=== PATIENT | female | born 1995 | race Caucasian/White ===

== ENCOUNTER 2024-12-28 11:36 | Emergency (ER) | payer BC, SELFPAY ==
[2024-12-28 11:47] VITALS: BP 108/61; PULSE 67; RESP 16; TEMP 36.4; O2SAT 100
--- OUTSIDE RECORDS SUMMARY | 2024-12-28 11:53 | XMS_ITS | Clinical Summary ---
Author Organization [facility] Address [address] [place] [address] Phone Care Team Providers Care Corporate Tax Manager Name Role Phone Jr Trinh MD Primary Care Provider [phone] Allergies Active Allergy Reactions Criticality Noted Date Comments Bee Pollen Unknown 11/27/2018 Bee stings Medications EPINEPHrine (EPIPEN) 0.3 mg/0.3 mL Auto-Injector INJECT 1 DOSE INTRAMUSCULARLY ONCE WHEN NEEDED FOR ANAPHYLAXIS 02/14/20 21 Active levothyroxine 25 mcg tablet TAKE ONE AND ONE-HALF TABLETS (37.5 MCG) DAILY IN THE MORNING 135 Tablet 1 01/02/20 24 Active norethindrn a-e estradiol-iron (Blisovi Fe 09/24, ,) 1 mg-20 mcg (21)/75 mg (7) tablet Take 1 Tablet by mouth daily. 84 Tablet 3 06/14/20 24 Active Active Problems No known active problems Resolved Problems Problem Noted Date Diagnosed Date Resolved Date Encounter for elective induction of labor 10/28/2020 05/17/2022 Encounters Date Type Department Care Team Description 12/18/2024 External Device Data STL ABSTRACTION Provider, Abstract 12/11/2024 External Device Data STL ABSTRACTION Provider, Abstract 11/10/2024 External Device Data STL ABSTRACTION Provider, Abstract 11/09/2024 External Device Data STL ABSTRACTION Provider, Abstract 11/06/2024 External Device Data STL ABSTRACTION Provider, Abstract 10/24/2024 External Device Data STL ABSTRACTION Provider, Abstract 10/23/2024 External Device Data STL ABSTRACTION Provider, Abstract from Last 3 Months Immunizations Immunization Administration Dates Next Due (ADACEL/BOOSTRIX)(10 YR UP) TDAP VACCINE, 0.5ML, IM 10/11/2023,08/13/2020 INFLUENZA VACCINE QUADRIVALENT 6 MOS UP PF IM Family History Medical History Relation Name Comments Stroke Maternal Grandmother Relation Name Status Comments Maternal Grandmother Social History Tobacco Use Types Packs/Day Years Used Date Smoking Tobacco: Never Smokeless Tobacco: Never Tobacco Cessation:Counseling Given: Not Answered Alcohol Use Standard Drinks/Week Comments Not Currently 0 (1 standard drink = 0.6 oz pur e alcohol) Feeling Safe Answer Date Recorded Are you in a relationship wi th someone who hurts you emotionally and/or physically? Patient unable to answer 12/26/2023 Comments No Sex and Gender Information Value Date Recorded Sex Assigned at Not on file Legal Sex Female 3:42 PM CDT Gender Identity Not on file Sexual Orientation Not on file Last Filed Vital Signs Vital Sign Reading Time Taken Comments Blood Pressure 118/62 06/14/2024 10:02 AM CDT Pulse 69 12/28/2023 7:05 AM CDT Temperature 36.7 C (98.1 F) 12/28/2023 7:05 AM CDT Respiratory Rate 16 12/28/2023 7:05 AM CDT Oxygen Saturation 100% 12/27/2023 1:00 PM CDT Inhaled Oxygen Concentration - - Weight 75.2 kg (165 lb 12.8 oz) 024 10:02 AM CDT Height 162.6 cm (5' 4 ) 06/14/2024 10:0 2 AM CDT Body Mass Index 28.46 06/14/2024 10:02 AM CDT Plan of Treatment Upcoming Encounters Date Type Department Care Team (Late st Contact Info) Description 06/24/2025 2:00 PM CDT Office Visit [facility] - [id number] [facility] [address] [address] [place] [address] [facility] [address] [place] [address] Health Maintenance Due Date Last Done Comments HPV/Cotest (21-29) 2015 HPV/Cotest (30-65) 02/03/2024 INFLUENZA VACCINE (#1) 2024 2, 06/09/2020, 06/08/2011, Additional history exists CERVICAL CANCER SCREENING 06/07/2026 PAP SMEAR 06/07/2026 06/07/2023, 03/31/2020 DTAP/TDAP/TD VACCINES (9 - T d or Tdap) 10/11/2033 10/11/2023, 08/13/2020, 04/12/2005, Additional history exists HEPATITIS B VACCINES Completed 1994, 1994, 1994 HPV VACCINES Completed 03/20/2008, 10/2007, 09/13/2007 Procedures Procedure Name Priority Date/Time Associated Diagnosis Comments CERV/VAG CYTO AGE BASED SCREEN PAP Routine 06/07/2023 9:43 AM CDT from Last 3 Months or Most Recently Relevant to Health Maintenance Results * CERV/VAG CYTO AGE BASED SCREEN PAP (06/07/2023 9:43 AM CDT) COMMENT (PAP): Kiersten Coffey Comment: This order for age-based cervical cancer and STI screening follows ACOG guidelines(PB 168, 140, [id number]). See individual assays for performing site location. CLINICAL INFORMATION Kiersten Coffey Comment:None given LAST MENSTRUAL PERIOD Kiersten Coffey Comment:[id number] PREV PAP: Kiersten Coffey Comment:NONE GIVEN PREV BX: Kiersten Coffey Comment:NONE GIVEN SOURCE Kiersten Coffey Comment:Endocervix ADEQUACY: Kiersten Coffey Comment: Satisfactory for evaluation. Endocervical/transformation zone component present. PAP INTERP Kiersten Coffey Comment: Cytology Results: Negative for intraepithelial lesion or malignancy. COMMENT (PAP TEST) Q uluke Coffey Comment: This Pap test has been evaluated with computer assisted technology. MARKETING SYSTEMS MANAGER: Iveth Coffey Comment: MVB, CT(ASCP) CT Screening Location: [place] [address] [place] [address] Que [address] Randell Coffey Comment: EXPLANATORY NOTE: The Pap is a screening test for cervical cancer. It is not a diagnostic test and is subject to false negative and false positive results. It is most reliable when a satisfactory sample, regularly obtained, is submitted with relevant clinical findings and history, and when the Pap result is evaluated along with historic and current clinical information. Test Performed at: [place] [address] [address] [phone] José Louise Vo Genital SWAB OF ENDOCERVIX / Unknown 06/07/2023 9:43 AM CDT 06/08/2023 1:10 AM CDT us Faith Enriquez DO PATHOLOGY/CYTOLOGY ORDERABL ES Final Result [facility] [phone] [place] [address] [address] [address] from Last 3 Months or Most Recently Relevant to Health Maintenance Insurance [facility] BLUE ACCESS CHOICE RX [facility] Advance Directives For more information, please contact: [phone] * Full Code (Latest Code Status on File) Date Activated Date Inactivated Comments 12/26/2023 8:51 PM 12/28/2023 1:14 PM * Full Code Date Activated Date Inactivated Comments 12/26/2023 8:13 AM 12/26/2023 8:51 PM * Full Code Date Activated Date Inactivated Comments 10/29/2020 5:06 PM 10/31/2020 2:22 PM Care Teams Corporate Tax Manager Relationship Specialty Start Date End Date Jr Trinh MD [address] [facility] [address] [place] [address] PCP - General Internal Medicine 10/07/20
--- NOTE | 2024-12-28 12:07 | ED_ITS ---
HPI - URI/Sore Throat General Chief Complaint: Upper Respiratory Infection Stated Complaint: sinus infection Time Seen by Provider: 12/28/24 11:50 Source: patient and RN notes reviewed Mode of arrival: ambulatory Limitations: no limitations History of Present Illness HPI Narrative: 29-year-old female presents Express Care complaining with upper respiratory symptoms for 10 days. Patient reported having congestion, sinus pressure, cough, postnasal drip. Patient has been taking Sudafed and Mucinex as needed for her symptoms with some relief. She denies any sore throat, fevers, chills, body aches, chest pain or shortness of breath. Patient says she is not feeling much better. Patient reports her cough is dry nonproductive. Patient says she has purulent nasal discharge as well Related Data Allergies Allergy/AdvReac Type Severity Reaction Status Date / Time No Known Allergies Allergy Verified 12/28/24 11:46 Review of Systems Review of Systems: CONSTITUTIONAL: Denies fever, chills, body aches, or sweats. EYES: Denies visual changes, redness, or discharge. ENT: Denies rhinorrhea, sore throat, or otalgia. Positive for congestion and nasal discharge. CARDIOVASCULAR: Denies chest pain, palpitations, or edema. RESPIRATORY: Positive for cough. Negative for dyspnea. GASTROINTESTINAL: Denies abdominal pain, nausea, vomiting, or diarrhea. GENITOURINARY: Denies dysuria or hematuria. SKIN: Denies rash or itching. MUSCULOSKELETAL: Denies back pain, joint pain, or myalgia. NEUROLOGIC: Denies headache, numbness, or weakness. PSYCHIATRIC: Denies anxiety or depression. All other systems reviewed are negative, except as documented in HPI. PMFSH Social History Social History Smoking status: Never smoker Alcohol intake: never Substance use: never Living arrangements: with family Occupation/Education: occupation Gender identity (if verbalized by the patient): Female Comments At the time of my signature, I reviewed and agree with the nursing past medical, surgical, social, and family history. There is no relevant family history per tinent to the patient complaint. Exam Narrative: GENERAL: This is a well-nourished, well-developed adult, in no apparent distress. They are non ill-appearing, nontoxic appearing. HEAD: normocephalic, atraumatic. EYES: Sclera clear/white. Conjunctivae are normal Vision is grossly intact. Extraocular movements intact. EARS: External ears normal, auditory canals clear and without drainage, TMs normal without perforation. Hearing grossly intact. NOSE: External nose normal with no obvious nasal discharge, nasal turbinates are erythematous bilaterally, no rhinorrhea. THROAT: Mucous membranes moist, posterior pharynx without swelling or erythema. Postnasal drip present. Uvula midline. NECK: Neck supple, non-tender without lymphadenopathy, masses or thyromegaly. CARDIOVASCULAR: Regular rate and rhythm without murmurs, gallops, or rubs. RESPIRATORY: Clear to auscultation. Breath sounds equal bilaterally. No wheezes, rales, or rhonchi. SKIN: warm, Dry, intact with no suspicious lesions or rash, good texture and turgor. NEURO: awake, alert, and oriented to person, place and time. There were no obvious focal neurologic abnormalities. EXTREMITIES: No joint tenderness, effusion, or edema noted. Course Course Level of Care: Express Care Visit Vital Signs Vital signs: Vital Signs Temperature 97.5 F L 12/28/24 11:47 Pulse Rate 67 12/28/24 11:47 Respiratory Rate 16 12/28/24 11:47 Blood Pressure 108/61 12/28/24 11:47 Pulse Oximetry 100 12/28/24 11:47 Oxygen Delivery Room Air 12/28/24 11:47 Temperature 97.5 F L 12/28/24 11:47 Pulse Rate 67 12/28/24 11:47 Respiratory Rate 16 12/28/24 11:47 Blood Pressure 108/61 12/28/24 11:47 Pulse Oximetry 100 12/28/24 11:47 Oxygen Delivery Room Air 12/28/24 11:47 Reviewed MDM - URI/Sore Throat MDM Narrative Medical decision making narrative: Given patient's LINQ the symptoms is likely the patient has developed a bacterial sinusitis. Will treat empirically with Augmentin. Discussed physical exam findings. Advised supportive measures and signs/symptoms to go to the ER. Pt is appropriate for outpt treatment and f/u. Differential Diagnosis Differential diagnosis: Likely upper respiratory infection, sinusitis and viral infection Critical Care Time Critical Care Time Critical Care Time: No Discharge Plan Discharge Clinical Impression: Sinusitis Qualifiers: Sinusitis location: unspecified location Chronicity: acute Recurrence: non- recurrent Qualified Code(s): J01.90 - Acute sinusitis, unspecified Patient Disposition: Home Condition: Stable Instructions: Antibiotic Form, Sinusitis (ED) Additional Instructions: Take the antibiotics as directed and complete the course even if you start to feel better. You may use a Neti pot saline rinse 3 times a day. Please use lukewarm distilled water. Continue to take Tylenol or Motrin for pain. Use a humidifier or vaporizer at night. Drink plenty of water. 8-10 glasses per day. Use flonase 2 times per day for 5 days then as needed Take mucinex 2 times per day and be sure to take with 8oz of water. Follow up with Primary provider if not getting better. Return to Express Care or go to the ER for new or worsening symptoms. Patient Language: Vietnamese Prescriptions: New fluticasone propionate [Flonase Allergy Relief] 50 mcg/actuation spray,suspension 2 spray intranasal DAILY Qty: 1 0RF Rx Instructions: administer into each nostril amoxicillin-pot clavulanate 875-125 mg tablet 1 tablet PO Q12H 7 Days Qty: 14 0RF Follow-up/Referrals: Gayathri,Jr Piper MD [Primary Care Provider] - Time of Disposition: 12:04
== END 2024-12-28 12:10 | disposition home or self-care (01) ==
PROVIDERS: PCP Internal Medicine
DX: J01.90 Acute sinusitis, unspecified (principal)
CPT/HCPCS: 99213; G0463

== ENCOUNTER 2025-06-11 11:40 | Emergency (ER) | payer BC, SELFPAY ==
[2025-06-11 11:46] VITALS: BP 110/65; PULSE 54; RESP 18; TEMP 36.3; O2SAT 100
--- NOTE | 2025-06-11 11:46 | ED_ITS ---
HPI - URI/Sore Throat General Chief Complaint: Upper Respiratory Infection Stated Complaint: Sinus Infection Time Seen by Provider: 06/11/25 11:46 Source: patient, RN notes reviewed and old records reviewed Mode of arrival: ambulatory Limitations: no limitations History of Present Illness HPI Narrative: 30-year-old female presents to the [facility] with 10 day history of cough, hoarseness, drainage. States it started as some sinus pressure, turn into a cough, worse at night. Denies fevers, chest pain, shortness of breath. States that she has used cough drops. No other treatment prior to arrival. Onset (ago): day(s) (10) Related Data Home Medications ?Medication ?Instructions ?Recorded ?Confirmed ?Last Taken ?Type norethindrone 1 mg-ethinyl tablet 06/11/25 Unknown Hi story estradiol 20 mcg (21)-iron 75 mg (7) tablet (Corina Fe 09/24 (28)) Allergies Allergy/AdvReac Type Severity Reaction Status Date / Time No Known Allergies Allergy Verified 06/11/25 11:48 Review of Systems Review of Systems: All systems reviewed & are unremarkable except as noted in HPI and below Constitutional: Constitutional: Reports no additional constitutional complaints ENT: Reports as per HPI Cardiovascular: Cardiovascular: Reports no additional cardiovascular complaint s, Denies chest pain and Denies dyspnea Respiratory: Respiratory: Reports as per HPI, Denies chest congestion, Reports cough and Denies dyspnea Musculoskeletal: Musculoskeletal: Reports no additional musculoskeletal complaints Integumentary/Breasts: Skin/Breast: Reports system reviewed and no additional complaints, except as docu PMFSH Social History Social History Smoking status: Never smoker Alcohol intake: never Substance use: never Living arrangements: with family Occupation/Education: occupation Gender identity (if verbalized by the patient): Female Comments At the time of my signature, I reviewed and agree with the nursing past medical, surgical, social, and family history. There is no relevant family history pertinent to the patient complaint. Exam Const: General: cooperative, healthy appearing, comfortable, no acute distress, well developed, alert and well nourished Nutritional Appearance: well nourished Orientation/consciousness: patient oriented x3 Limitations: no limitations HENMT: Head: normal to inspection Ears: hearing grossly normal bilaterally, external ears normal, TM's normal bilaterally, EAC's normal, mastoids normal and no periauricular adenopathy Face and sinus: normal facial exam, sinuses nontender and face symmetric Mouth: Yes Normal oral and palatal mucosa present, Yes lip normal, Yes tongue normal and Yes moist mucous membranes Throat: uvula midline, postnasal drainage and no uvular edema Eyes: General: appearance normal, both eyes and all related structures Alignment and Position: alignment normal Neck: Neck: normal visual inspection, full ROM, no lymphadenopathy and no meningeal signs Chest: Chest palpation & inspection: normal inspection of the chest Resp: Effort & Inspection: normal respiratory effort and able to speak in complete sentences Auscultation: clear to auscultation bilaterally, no crackles, no rales, no rhonchi and no wheezes Cardio: Rate: regular rate Skin: General skin exam: normal color and no rashes or lesions noted Neuro: General: patient oriented x3, gait normal, moves all extremities and no meningeal signs Cognition (Neuro): normal cognition Speech: normal speech Gait exam (Neuro): Normal gait present Extrem: General: normal to inspection, full ROM, capillary refill normal and normal gait Psych: Appearance: grossly normal and well kempt Mental Status: mental status grossly normal Speech and movement: Normal speech and movement present and Clear speech present Affect: normal affect Attitude: cooperative Course Course Level of Care: Express Care Visit Vital Signs Vital signs: Vital Signs Temperature 97.4 F L 06/11/25 11:46 Pulse Rate 54 L 06/11/25 11:46 Respiratory Rate 18 06/11/25 11:46 Blood Pressure 110/65 06/11/25 11:46 Pulse Oximetry 100 06/11/25 11:46 Oxygen Delivery Room Air 06/11/25 11:46 Temperature 97.4 F L 06/11/25 11:46 Pulse Rate 54 L 06/11/25 11:46 Respiratory Rate 18 06/11/25 11:46 Blood Pressure 110/65 06/11/25 11:46 Pulse Oximetry 100 06/11/25 11:46 Oxygen Delivery Room Air 06/11/25 11:46 Reviewed MDM - URI/Sore Throat MDM Narrative Medical decision making narrative: Patient sitting comfortably in exam room. Patient is nontoxic, vitals stable. Patient with 10 day history cough, started as sinus pressure. Most likely sinusitis, postnasal drainage turning into a bronchitis. Will cover with doxycycline, encouraged [id number] products. Discharge instructions reviewed with patient, as well as provided in writing per nursing staff. The instructions also include specific and strict return/GO TO THE ER as well as f/u information. All questions have been answered, and the patient deny any further questions with discharge and discharge plan. Some parts of this dictation were generated by voice recognition software and may contain typographical and/or grammatical inaccuracies. Differential Diagnosis Differential diagnosis: Likely upper respiratory infection, otitis media, sinusitis, viral infection, bronchitis, influenza and pharyngitis Critical Care Time Critical Care Time Critical Care Time: No Discharge Plan Discharge Clinical Impression: Bronchitis Patient Disposition: Home Condition: Stable Instructions: Antibiotic Form, Acute Bronchitis (ED) Additional Instructions: It is very important to treat your symptoms. Drink plenty of water, Gatorade, Pedialyte, ice pops or Jell-O. -Alternate Tylenol and Motrin per package directions for fever or pain. You can alternate every 4 hours -Antihistamine medication such as Zyrtec/Claritin/Nayana during the day can help improve symptoms. -doing daily nasal irrigations can help relieve pressure your sinuses. Things like a Neti pot -Use Flonase twice a day for 5 days then daily to help reduce the inflammation and dry up your sinuses. -You can also use Mucinex. Be sure to drink plenty of water with this medication at least 8 ounces with every dose and it is important to drink 8 to 10 glasses of water per day. Water is a natural decongestant -Eat and drink things that are easy to swallow, like tea or soup, or popsicles. -Oral rinses such as: Salt water gargles and/or may use topical anesthetic (eg. Chloraseptic spray) or lozenges to relieve dryness or throat pain). -Frequent hand washing or hand women's studies professor is one of the best ways to prevent spread of infection. -Using a vaporizer or humidifier at night will also help thin secretions and help with coughing up phlegm. -Follow up with primary care provider in 7-10 days if condition is not improving - For new or worsening symptoms go directly to the nearest ER Patient Language: Bahraini Prescriptions: New doxycycline monohydrate 100 mg tablet 100 mg PO BID Qty: 14 0RF No Action norethindrone-e.estradiol-iron [Corina Dorado 09/24 (28)] 1 mg-20 mcg (21)/75 mg (7) tablet Follow-up/Referrals: Gayathri,Jr Piper MD [Primary Care Provider, Unknown] - 1 Week Time of Disposition: 11:53
--- OUTSIDE RECORDS SUMMARY | 2025-06-11 12:58 | XMS_ITS | Clinical Summary ---
Author Organization [facility] Address [address] [place] [address] Phone Care Team Providers Care Tool Keeper Name Role Phone Jr Trinh MD Primary Care Provider [phone] Allergies Active Allergy Reactions Criticality Noted Date Comments Bee Pollen Unknown 11/27/2018 Bee stings Medications EPINEPHrine (EPIPEN) 0.3 mg/0.3 mL Auto-Injector INJECT 1 DOSE INTRAMUSCULARLY ONCE WHEN NEEDED FOR ANAPHYLAXIS 02/14/20 21 Active levothyroxine 25 mcg tablet TAKE ONE AND ONE-HALF TABLETS (37.5 MCG) DAILY IN THE MORNING 135 Tablet 1 01/02/20 24 Active norethindrn a-e estradiol-iron (Blisovi Fe 09/24, 28,) 1 mg-20 mcg (21)/75 mg (7) tablet Take 1 Tablet by mouth daily. 84 Tablet 3 06/14/20 24 Active Active Problems No known active problems Resolved Problems Problem Noted Date Diagnosed Date Resolved Date Encounter for elective induction of labor 10/28/2020 05/17/2022 Encounters Date Type Department Care Team Description 04/10/2025 External Device Data STL ABSTRACTION Provider, Abstract [...] 10:02 AM CDT Height 162.6 cm (5' 4) 06/14/2024 10:0 2 AM CDT Body Mass Index 28.46 06/14/2024 10:02 AM CDT Plan of Treatment Upcoming Encounters Date Type Department Care Team (Late st Contact Info) Description 07/16/2025 10:10 AM COMMODITIES REQUIREMENTS ANALYST Office Visit [facility] - [address] [address] Faith Enriquez, [address] [facility] [address] [place] [address] Health Maintenance Due Date Last Done Comments HPV/Cotest (21-29) 2015 HPV/Cotest (30-65) 02/03/2024 INFLUENZA VACCINE (#1) 2025 , 06/09/2020, 06/08/2011, Additional history exists CERVICAL CANCER [...] STI screening follows ACOG guidelines(PB 168, 140, [id number]). See individual assays for performing site location. CLINICAL INFORMATION Kiersten Coffey Comment:None given LAST MENSTRUAL PERIOD Kiersten Coffey Comment:[id number] PREV PAP: Kiersten Coffey Comment:NONE GIVEN PREV BX: Kiersten Coffey Comment:NONE GIVEN SOURCE Kiersten Coffey Comment:Endocervix ADEQUACY: iKersten Coffey Comment: Satisfactory for evaluation. Endocervical/transformation zone component present. PAP INTERP Kiersten Coffey Comment: Cytology Results: Negative for intraepithelial lesion or malignancy. COMMENT (PAP TEST) Q uluke Coffey Comment: This Pap test has been evaluated with computer assisted technology. PHP PROGRAMMER: Iveth Coffey Comment: MVB, CT(ASCP) CT Screening Location: [place] [address] [address] [id number] [address] NOTE Que st Randell Coffey Comment: [...] and current clinical information. Test Performed at: [facility] [place] [address] [address] [place] [phone] José Louise Genital SWAB OF ENDOCERVIX / Unknown 06/07/2023 9:43 AM CDT 06/08/2023 1:10 AM CDT us Faith Enriquez DO PATHOLOGY/CYTOLOGY ORDERABL ES Final Result [facility] [phone] [place] [facility] [place] [id number] [place] [address] from Last 3 Months or Most Recently Relevant to Health Maintenance Insurance [facility] BLUE ACCESS CHOICE RX [facility] Express Advance Directives For more information, please contact: [phone] * Full Code (Latest Code Status on File) Date Activated Date Inactivated Comments 12/26/2023 8:51 PM 12/28/2023 1:14 PM * Full Code Date Activated Date Inactivated Comments 12/26/2023 8:13 AM 12/26/2023 8:51 PM * Full Code Date Activated Date Inactivated Comments 10/29/2020 5:06 PM 10/31/2020 2:22 PM Care Teams Tool Keeper Relationship Specialty Start Date End Date Jr Trinh MD [address] [facility] [address] [place] [id number] PCP - General Internal Medicine 10/07/20
== END 2025-06-11 11:56 | disposition home or self-care (01) ==
PROVIDERS: Emergency Provider Nurse Practitioner; PCP Internal Medicine
DX: J40 Bronchitis, not specified as acute or chronic (principal)
CPT/HCPCS: 99213; G0463